=== PATIENT | female | born 1975 | race Caucasian/White ===

== ENCOUNTER 2016-10-12 23:39 | Emergency (ER) | payer BC ==
[2016-10-13] MEDS ORDERED: ONDANSETRON ODT 4 MG TAB ONE (02:48)
[2016-10-13] MEDS ORDERED: DILAUDID 1 MG/ML AMP ONE (02:48)
== END 2016-10-13 03:47 | disposition home or self-care (01) ==
LOC: ER 23:39
CPT/HCPCS: 36415; 80053; 82550; 84550; 85025; 86038; 86060; 86141; 86431; 96372